=== PATIENT | male | born 1985 | race Hispanic/Latino ===

== ENCOUNTER 2018-05-16 00:16 | Emergency (ER) | payer OTHER ==
[2018-05-16] MEDS ORDERED: CLONIDINE HCL 0.1 MG TABLET ONE (00:40)
[2018-05-16] MEDS ORDERED: LISINOPRIL 5 MG TABLET ONE (00:40)
[2018-05-16] MEDS ORDERED: HYDROCODONE/ACETAMINOPHEN 5/325 MG TAB ONE (00:41)
[2018-05-16 01:33] LABS: BASOPHILS % (AUTO) 0.4 % (0.0-5.0); EOSINOPHILS % (AUTO) 1.7 % (0.0-8.0); HEMATOCRIT 44.5 % (42-54); LYMPHOCYTES % (AUTO) 13.3 % (21.0-51.0); MEAN CORPUSCULAR HEMOGLOBIN 28.8 pg (27.0-33.0); MEAN CORPUSCULAR HGB CONC 34.3 g/dL (32.0-36.0); MONOCYTES % (AUTO) 6.4 % (3.0-13.0); NEUTROPHILS % (AUTO) 78.2 % (40.0-77.0); PLATELET COUNT (AUTO) 138 K/uL (130-400); RED BLOOD CELL COUNT(AUTO) 5.29 MIL/uL (4.50-6.20); RED CELL DISTRIBUTION WIDTH 13.2 % (11.0-15.5); WHITE BLOOD COUNT (AUTO) 12.7 K/uL (4.8-10.8)
[2018-05-16 01:42] LABS: POTASSIUM 3.7 mmol/L (3.5-5.1)
[2018-05-16 01:46] LABS: BILIRUBIN,TOTAL 0.2 mg/dL (0.2-1.0); TOTAL PROTEIN, SERUM 6.9 g/dL (6.0-8.3)
== END 2018-05-16 02:10 | disposition home or self-care (01) ==
LOC: EDH 00:16
DX: I10 Essential (primary) hypertension (principal); R51 Headache; Z72.0 Tobacco use
CPT/HCPCS: 36415; 70450; 80053; 84484; 85025; 93005